=== PATIENT | female | born 1980 | race Caucasian/White ===

== ENCOUNTER 2018-08-18 14:29 | Emergency (ER) | payer OTHER ==
[~2018-08-18] VITALS: Ht 182.9 cm; Wt 158.8 kg
[2018-08-18] MEDS ORDERED: MOBIC7.5 MG PO (17:57)
[2018-08-18] MEDS ORDERED: ZANAFLEX4 MG PO (17:57)
[2018-08-18 18:07] VITALS: BP 154/80
== END 2018-08-18 18:54 | disposition home or self-care (01) ==
LOC: ER 14:29
DX: M25.531 Pain in right wrist (principal); M54.2 Cervicalgia; F17.210 Nicotine dependence, cigarettes, uncomplicated; Z98.890 Other specified postprocedural states; Z90.89 Acquired absence of other organs; V49.9XXA Car occupant (driver) (passenger) injured in unspecified traffic accident, initial encounter; Y93.89 Activity, other specified; Y92.89 Other specified places as the place of occurrence of the external cause; Y99.8 Other external cause status